=== PATIENT | female | born 1990 | race Caucasian/White ===

== ENCOUNTER 2019-12-30 | Emergency (ER) | payer OTHER, BC ==
[~2019-12-30] MED LIST: FLEXERIL OR; ULTRAM50 M1 OR
[2019-12-30] MEDS ORDERED: VOLTAREN - GENE75 MG PO (22:21)
== END 2019-12-30 22:45 | disposition home or self-care (01) | DRG 563 ==
DX: S39.012A Strain of muscle, fascia and tendon of lower back, initial encounter (principal); S29.012A Strain of muscle and tendon of back wall of thorax, initial encounter; V49.40XA Driver injured in collision with unspecified motor vehicles in traffic accident, initial encounter

== ENCOUNTER 2020-04-21 15:28 | Emergency (ER) | payer BC ==
[~2020-04-21 15:28] MED LIST changes: +VOLTAREN - GENE75 MG PO
[2020-04-21 16:27] LABS: HEMATOCRIT 40.7 % (37.0-47.0); HEMOGLOBIN 13.7 g/dl (12.0-16.0); IMMATURE GRANULOCYTES 0.4 % (0.0-5.0); MEAN CELL VOLUME 93.6 fL CALC (80.0-100.0); MEAN CORPUSCULAR HGB 31.5 pG CALC (26.0-32.0); MEAN CORPUSCULAR HGB CONC 33.7 g/dL CAL (32.0-36.0); NEUT# 9.7 thou/uL (2.00-7.15); RED BLOOD COUNT 4.35 mill/uL (4.20-5.60); RED CELL DISTRI WIDTH 12.3 % (11.5-15.5)
[2020-04-21 16:42] LABS: ALKALINE PHOSPHATASE 48 u/l (38-126); BUN 10 mg/dL (7-17); BUN/CREATININE RATIO 15 (12-20 (CALC)); CHLORIDE 104 mmol/l (95-108); CREATININE 0.7 mg/dL (0.5-1.0); GFR > 60 ML/MIN (>=60 (CALC)); GFR FOR AFR.AMER. > 60 ML/MIN (>=60 (CALC)); LIPASE 42 u/l (23-300); POTASSIUM 3.9 mmol/l (3.5-5.1); SGOT/AST 25 u/l (14-36); TOTAL PROTEIN 8.2 g/dL (6.3-8.2)
[2020-04-21 16:48] LABS: ANION GAP 16 (6-22 (CALC)); BILIRUBIN, TOTAL 0.7 mg/dL (0.0-1.4); CARBON DIOXIDE 19 mmol/l (22-30); SODIUM 135 mmol/l (137-146); URINE BILIRUBIN - DIPSTICK NEGATIVE (NEGATIVE); URINE BLOOD DIPSTICK NEGATIVE (NEGATIVE); URINE COLOR YELLOW; URINE GLUCOSE - DIPSTICK NEGATIVE (NEGATIVE); URINE KETONE 15 mg/dL (NEGATIVE); URINE LEUK ESTERASE NEGATIVE (NEGATIVE); URINE NITRITE - DIPSTICK NEGATIVE (Negative); URINE PROTEIN - DIPSTICK NEGATIVE (NEG-TRACE); URINE SPECIFIC GRAVITY >=1.030; URINE UROBILINOGEN - DIPSTICK 0.2 E.U./dL (0.2)
[2020-04-21] MEDS ORDERED: ONDANSETRON4 MG PO (18:20)
[2020-04-21 18:27] VITALS: BP 106/60
== END 2020-04-21 18:36 | disposition home or self-care (01) | DRG 392 ==
LOC: ED 15:28
PROVIDERS: Family Medicine
DX: K52.9 Noninfective gastroenteritis and colitis, unspecified (principal)

== ENCOUNTER 2020-04-24 13:06 | Emergency (ER) | payer BC ==
[~2020-04-24 13:06] MED LIST changes: +ONDANSETRON4 MG PO
[2020-04-24 16:45] LABS: HEMATOCRIT 43.2 % (37.0-47.0); IMMATURE GRANULOCYTES 0.4 % (0.0-5.0); MEAN CELL VOLUME 90.6 fL CALC (80.0-100.0); MEAN CORPUSCULAR HGB 31.4 pG CALC (26.0-32.0); MEAN CORPUSCULAR HGB CONC 34.7 g/dL CAL (32.0-36.0); NEUT# 6.31 thou/uL (2.00-7.15); RED BLOOD COUNT 4.77 mill/uL (4.20-5.60); RED CELL DISTRI WIDTH 12.3 % (11.5-15.5)
[2020-04-24 16:51] LABS: URINE BILIRUBIN - DIPSTICK NEGATIVE (NEGATIVE); URINE BLOOD DIPSTICK NEGATIVE (NEGATIVE); URINE COLOR YELLOW; URINE GLUCOSE - DIPSTICK NEGATIVE (NEGATIVE); URINE KETONE 15 mg/dL (NEGATIVE); URINE LEUK ESTERASE NEGATIVE (NEGATIVE); URINE NITRITE - DIPSTICK NEGATIVE (Negative); URINE PH 8.5 (4.5-8.0); URINE PROTEIN - DIPSTICK NEGATIVE (NEG-TRACE); URINE SPECIFIC GRAVITY 1.025; URINE UROBILINOGEN - DIPSTICK 0.2 E.U./dL (0.2)
[2020-04-24 17:05] LABS: ALBUMIN 4.8 g/dL (3.2-5.0); ALKALINE PHOSPHATASE 48 u/l (38-126); AMYLASE 71 u/l (30-110); ANION GAP 14 (6-22 (CALC)); BILIRUBIN, TOTAL 0.8 mg/dL (0.0-1.4); BUN 9 mg/dL (7-17); BUN/CREATININE RATIO 12 (12-20 (CALC)); CHLORIDE 99 mmol/l (95-108); CREATININE 0.8 mg/dL (0.5-1.0); GFR > 60 ML/MIN (>=60 (CALC)); GFR FOR AFR.AMER. > 60 ML/MIN (>=60 (CALC)); LIPASE 47 u/l (23-300); POTASSIUM 3.8 mmol/l (3.5-5.1); SGOT/AST 31 u/l (14-36); SODIUM 133 mmol/l (137-146); TOTAL PROTEIN 8.5 g/dL (6.3-8.2)
[2020-04-24 17:08] LABS: CARBON DIOXIDE 24 mmol/l (22-30)
[2020-04-24] MEDS ORDERED: ZOFRAN4 M1 PO (20:33)
[2020-04-24] MEDS ORDERED: PHENERGAN25 MG/TAB PO ×2 (20:43→20:46)
[2020-04-24 20:45] VITALS: BP 138/81
== END 2020-04-24 20:45 | disposition home or self-care (01) | DRG 866 ==
LOC: ED 13:06
DX: B34.9 Viral infection, unspecified (principal)
CPT/HCPCS: Q9967; S0164

== ENCOUNTER 2022-01-18 11:04 | Emergency (ER) | payer BC ==
[~2022-01-18] VITALS: Ht 152.4 cm; Wt 50.0 kg
[~2022-01-18 11:04] MED LIST changes: +PHENERGAN25 MG/TAB PO; +ZOFRAN4 M1 PO
[2022-01-18] MEDS ORDERED: PEPCID20 MG PO (12:39)
[2022-01-18 15:27] LABS: URINE BILIRUBIN - DIPSTICK NEGATIVE (NEGATIVE); URINE BLOOD DIPSTICK NEGATIVE (NEGATIVE); URINE COLOR YELLOW; URINE GLUCOSE - DIPSTICK NEGATIVE (NEGATIVE); URINE KETONE >=80 mg/dL (NEGATIVE); URINE LEUK ESTERASE NEGATIVE (NEGATIVE); URINE NITRITE - DIPSTICK NEGATIVE (Negative); URINE PROTEIN - DIPSTICK NEGATIVE (NEG-TRACE); URINE SPECIFIC GRAVITY 1.025; URINE UROBILINOGEN - DIPSTICK 0.2 E.U./dL (0.2)
[2022-01-18 16:07] LABS: HEMATOCRIT 38.1 % (37.0-47.0); IMMATURE GRANULOCYTES 0.1 % (0.0-5.0); MEAN CORPUSCULAR HGB 32.2 pG CALC (26.0-32.0); MEAN CORPUSCULAR HGB CONC 33.9 g/dL CAL (32.0-36.0); NEUT# 7.23 thou/uL (2.00-7.15); RED BLOOD COUNT 4.01 mill/uL (4.20-5.60)
[2022-01-18 16:22] LABS: HEMOGLOBIN 12.9 g/dl (12.0-16.0)
[2022-01-18 16:27] LABS: ALKALINE PHOSPHATASE 35 u/l (38-126); ANION GAP 14 (6-22 (CALC)); BILIRUBIN, TOTAL 0.6 mg/dL (0.0-1.4); BUN 6 mg/dL (7-17); BUN/CREATININE RATIO 13 (12-20 (CALC)); CARBON DIOXIDE 19 mmol/l (22-30); CHLORIDE 106 mmol/l (95-108); CREATININE 0.5 mg/dL (0.5-1.0); GFR > 60 ML/MIN (>=60 (CALC)); GFR FOR AFR.AMER. > 60 ML/MIN (>=60 (CALC)); POTASSIUM 4.1 mmol/l (3.5-5.1); SGOT/AST 18 u/l (14-36); SODIUM 135 mmol/l (137-146); TOTAL PROTEIN 6.5 g/dL (6.3-8.2)
[2022-01-18 16:28] LABS: ALBUMIN 3.6 g/dL (3.2-5.0)
[2022-01-18] MEDS ORDERED: ONDANSETRON4 MG PO (16:56)
[2022-01-18 17:07] VITALS: BP 109/64
[2022-01-18 17:11] LABS: BETA-HCG, QUANT(RESULT NUMBER) 108750 mIU/mL
== END 2022-01-18 17:19 | disposition home or self-care (01) | DRG 833 ==
LOC: ED 11:04
PROVIDERS: Family Medicine
DX: O26.891 Other specified pregnancy related conditions, first trimester (principal); R11.2 Nausea with vomiting, unspecified; Z3A.10 10 weeks gestation of pregnancy

== ENCOUNTER 2024-06-16 20:26 | Emergency (ER) | payer MEDICAID ==
[2024-06-16] VITALS (8 sets, daily range): BP systolic 112–125; BP diastolic 77–93
[~2024-06-16] VITALS: Ht 152.4 cm; Wt 52.0 kg
[~2024-06-16 20:26] MED LIST changes: +PEPCID20 MG PO
[2024-06-16] MEDS ORDERED: SODIUM CHLORIDE 0.9% 1,000 ML IV ONE (21:00)
[2024-06-16] MEDS ORDERED: ACETAMINOPHEN 500 MG TAB PO ONE (21:00)
[2024-06-16 21:17] LABS: BASO% 0.3 % (0-3); EOS% 2.3 % (0-8); HEMATOCRIT 38.2 % (37.0-47.0); HEMOGLOBIN 12.7 g/dl (12.0-16.0); IMMATURE GRANULOCYTES 0.2 % (0.0-5.0); MEAN CELL VOLUME 94.3 fL CALC (80.0-100.0); MEAN CORPUSCULAR HGB 31.4 pG CALC (26.0-32.0); MEAN CORPUSCULAR HGB CONC 33.2 g/dL CAL (32.0-36.0); MONO% 7.6 % (2-13); NEUT# 3.99 thou/uL (2.00-7.15); NEUT% 60.6 % (42-76); RED BLOOD COUNT 4.05 mill/uL (4.20-5.60); RED CELL DISTRI WIDTH 12.3 % (11.5-15.5)
[2024-06-16 21:29] LABS: ALKALINE PHOSPHATASE 50 u/l (38-126); BILIRUBIN, TOTAL 0.4 mg/dL (0.02-1.3); BUN 17 mg/dL (7-17); BUN/CREATININE RATIO 21 (12-20 (CALC)); CHLORIDE 108 mmol/l (95-108); CREATININE 0.8 mg/dL (0.5-1.0); ESTIMATED GFR 100 ML/MIN (>=90 (CALC)); POTASSIUM 3.4 mmol/l (3.5-5.1); SGOT/AST 23 u/l (14-36); SODIUM 140 mmol/l (137-146); TOTAL PROTEIN 7.8 g/dL (6.3-8.2)
[2024-06-16 21:45] LABS: BETA-HCG, QUANT(RESULT NUMBER) <2 mIU/mL
[2024-06-16 22:27] LABS: ALBUMIN 4.4 g/dL (3.2-5.0); ANION GAP 8 (6-22 (CALC)); CARBON DIOXIDE 27 mmol/l (22-30)
== END 2024-06-16 23:09 | disposition home or self-care (01) ==
LOC: ED 20:26
PROVIDERS: Family Medicine
DX: N93.9 Abnormal uterine and vaginal bleeding, unspecified (principal)

== ENCOUNTER 2024-08-15 12:06 | Emergency (ER) | payer MEDICAID ==
[2024-08-15] VITALS (8 sets, daily range): BP systolic 106–128; BP diastolic 72–95
[~2024-08-15] VITALS: Ht 152.4 cm; Wt 54.4 kg
[2024-08-15] MEDS ORDERED: SODIUM CHLORIDE 0.9% 1,000 ML IV ONE ×2 (12:15→13:50)
[2024-08-15] MEDS ORDERED: ONDANSETRON HCl 4 MG/2 ML SDV IV ONE (12:15)
[2024-08-15 12:57] LABS: BASO% 0.1 % (0-3); HEMATOCRIT 40.4 % (37.0-47.0); HEMOGLOBIN 13.9 g/dl (12.0-16.0); IMMATURE GRANULOCYTES 0.6 % (0.0-5.0); LYMPH% 10.4 % (15-41); MEAN CORPUSCULAR HGB 31.3 pG CALC (26.0-32.0); MEAN CORPUSCULAR HGB CONC 34.4 g/dL CAL (32.0-36.0); MONO% 4.2 % (2-13); NEUT# 8.71 thou/uL (2.00-7.15); NEUT% 84.7 % (42-76); RED BLOOD COUNT 4.44 mill/uL (4.20-5.60); RED CELL DISTRI WIDTH 11.9 % (11.5-15.5)
[2024-08-15 13:00] LABS: ALBUMIN 4.4 g/dL (3.2-5.0); CREATININE 0.5 mg/dL (0.5-1.0); POTASSIUM 3.7 mmol/l (3.5-5.1); TOTAL PROTEIN 7.8 g/dL (6.3-8.2)
[2024-08-15] MEDS ORDERED: PROMETHAZINE HCL 25 MG/ML AMP IV ONE (13:00)
[2024-08-15 13:09] LABS: BILIRUBIN, TOTAL 0.8 mg/dL (0.02-1.3)
[2024-08-15] MEDS ORDERED: DiphenhydrAMINE HCL 50 MG/ML SDV IV ONE (13:45)
[2024-08-15] MEDS ORDERED: PHENERGAN SUP12.5 MG RE ×2 (14:15→15:01)
[2024-08-15] MEDS ORDERED: DOXYLAMINE SUCC PO ×2 (14:15→15:01)
== END 2024-08-15 15:02 | disposition home or self-care (01) ==
LOC: ED 12:06
PROVIDERS: Nurse Practitioner Family
DX: O21.0 Mild hyperemesis gravidarum (principal); Z3A.09 9 weeks gestation of pregnancy